=== PATIENT | female | born 1955 | race Caucasian/White ===

== ENCOUNTER 2017-05-01 09:29 | Day surgery (SDC) | payer OTHER ==
[~2017-05-01] VITALS: Ht 167.6 cm; Wt 69.9 kg
[~2017-05-01 09:29] MED LIST: ASPI81CH; FISH1000 PO; GABA300 PO; MELA3 PO; MULVITA PO; PRAV20; ZESTORETIC 20-251 EA
[2017-05-01] MEDS ORDERED: NP THYROID15 MG (09:53)
== END 2017-05-01 11:11 | disposition home or self-care (01) ==
LOC: ORSCSDS 09:29
PROVIDERS: Surgery
PROC: 0DJD8ZZ Inspection of Lower Intestinal Tract, Via Natural or Artificial Opening Endoscopic (ICD-10-PCS; principal; 2017-05-01 10:30)
DX: Z12.11 Encounter for screening for malignant neoplasm of colon (principal); I10 Essential (primary) hypertension; E78.5 Hyperlipidemia, unspecified; Z87.891 Personal history of nicotine dependence; Z79.82 Long term (current) use of aspirin; Z79.899 Other long term (current) drug therapy